=== PATIENT | female | born 1960 | race African-American/Black ===

== ENCOUNTER → 2018-10-03 | Outpatient (CLI) | payer MEDICAID ==
[~2018-10-03] MED LIST: ALPR0.5T6 PO; AMLO-150 PO; CYAN1TAB29 PO; FERR325C PO; FOLI0.4T2 PO; HYDR-3151 PO; IBUP-1223 PO; MULT-516 PO; TRAM50TA2 PO
== END | disposition home or self-care (01) ==
LOC: CVU 10:02
PROVIDERS: ATTEND Internal Medicine Cardiovascular Disease
DX: I07.1 Rheumatic tricuspid insufficiency (principal); I10 Essential (primary) hypertension; E11.9 Type 2 diabetes mellitus without complications
CPT/HCPCS: 93306